=== PATIENT | male | born 1990 | race Caucasian/White ===

== ENCOUNTER 2023-01-31 12:42 | Day surgery (SDC) | payer OTHER, SELFPAY ==
--- NOTE | 2023-01-31 13:13 | HO.ANESPROP2 ---
HPI - Anesthesia Eval Consult details Narrative: 33 yo male patient for EGD PMFSH Active Problems Active Problems: Increased BMI For Right UE cubital fossa and carpal tunnel surgery in March Daily marijuana Vapes Past Medical History Medical History Adjustment disorder Anxiety and depression ETOH abuse GERD (gastroesophageal reflux disease) HTN (hypertension) PTSD (post-traumatic stress disorder) Family History Family history of problems with anesthesia: No Surgical History Surgical History (Updated 01/31/23 @ 13:26 by Geneva Love MD) H/O arthroplasty History of esophagogastroduodenoscopy (EGD) History of Problems with Anesthesia: No Social History Social History Advance Directives: No Advance Directives Information Provided: Yes Meds Allergies Allergy/AdvReac Type Severity Reaction Status Date / Time No Known Allergies Allergy Verified 01/30/23 13:35 Active Medications: Current Medications Albuterol Sulfate (Albuterol Sulfate (0.083%) 2.5 Mg/3 Ml Vial.Neb) 2.5 mg INHALE ONCE ONE Stop: 01/31/23 13:13 Lactated Ringer's (Lr) 1,000 mls @ 100 mls/hr IVCONT .Q10H [facility] Home Medications Medication Instructions Recorded Confirmed Last Taken Type No Known Home Meds 01/30/23 01/30/23 Unknown History Exam Exam Date and Time: January 31, 2023 1313 Height,Weight and Vital Signs: Height 5 ft 9 in Weight 109.769 kg Vital Signs Temp Pulse Resp BP Pulse Ox O2 Del Method 01/31/23 13:14 97.9 F 77 18 123/81 96 Room Air Airway Mallampati Class: II TM Dist: >3cm Neck ROM: Limited (S/p cervical surgery) Loose/Missing/Broken Teeth: No (Denies broken, loose, missing teeth) Heart: RRR Lungs: Wheezes Right Assessment and Plan Assessment Anesthesia Assessment: Anesthesia Plan Discussed and Chart Reviewed Final Anesthetic Review Family History of Problems with Anesthesia: No History of Problems with Anesthesia: No NPO: Yes ASA Class: III Final Preanesthetic Review: No Changes in Pt Med Stat, Meds/Allgs Chart Reviewed, Consent Obtained/Reviewed and Anes Risks/Benef Reviewed Patient Risk: Intermediate Procedure Risk: Low Assessment/Block/Sedation in SS: Assess/Block/Sedation-SS Anesthetic Plan Anesthetic Plan: MAC: Disposition: Standard PACU
[2023-01-31 13:14] VITALS: BP 123/81; PULSE 77; RESP 18; TEMP 36.6; O2SAT 96; BMI 35.7
[2023-01-31] MEDS: Albuterol Sulfate (0.083%) 2.5 MG/3 ML VIAL.NEB INHALE (13:31)
[2023-01-31 13:34] VITALS: PULSE 73; RESP 16; O2SAT 96
[2023-01-31] MEDS: Lactated Ringers 1,000 ML 100 ML IVCONT (13:39)
--- NOTE | 2023-01-31 13:59 | MHC.SHP ---
Pre-Procedural Eval Section A Date of Service: 01/31/23 The patient is an INPATIENT: No Changes since office visit: No Cold of Flu in the past 2 weeks, No New Medical Problems, No Changes in Medication and No Patient answered all questions The History & Physical has been completed within 30 days and I have reviewed it.: Yes Section B Chief Complaint: gerd Allergies: Allergies Allergy/AdvReac Type Severity Reaction Status Date / Time No Known Allergies Allergy Verified 01/30/23 13:35 Plan I have reviewed the history and physical and performed a pertinent physical examination on my patient. No changes have occurred unless specified. Time Spent With Patient Time: Total time managing care of this patient today ____ minutes.
--- NOTE | 2023-01-31 14:17 | PM.OP ---
Brief Operative Note Date of Service: 01/31/23 Pre-op diagnosis: GERD Post-op diagnosis: same Procedure: EGD Surgeon: Eliceo Dolan Anesthesia: MAC Was an [employer] used for this Procedure?: No Estimated blood loss (mL): 2 Condition: stable Disposition: PACU
[2023-01-31 14:20] VITALS: BP 121/60; PULSE 89; RESP 16; TEMP 36.4; O2SAT 95
[2023-01-31 14:35] VITALS: BP 121/72; PULSE 73; RESP 16; TEMP 36.2; O2SAT 95
--- NOTE | 2023-01-31 22:35 | OP_ITS ---
DATE OF SERVICE: 01/31/2023 SURGEON: Eliceo Dolan MD INDICATIONS: Gastroesophageal reflux disease. PREOPERATIVE DIAGNOSIS: POSTOPERATIVE DIAGNOSIS: PROCEDURE PERFORMED: Upper endoscopy with biopsy. ESTIMATED BLOOD LOSS: COMPLICATIONS: ANESTHESIA: Monitored anesthesia care. ASSISTANTS: SPECIMENS: DESCRIPTION OF PROCEDURE: A history and physical was performed. The risks and benefits of the procedure were explained to the patient. Informed consent was obtained. The patient was placed in the left lateral decubitus position. The Olympus video gastroscope was introduced into the esophagus, stomach, and duodenum. Examination was performed. The scope was removed. He tolerated the procedure well and was returned to the recovery area in stable condition. FINDINGS: Esophagus: The esophagus was normal. The EG junction was slightly irregular. This was biopsied. Stomach: The stomach showed no evidence of masses, ulcers, or polyps. The antral biopsies were obtained to evaluate for H pylori. Duodenum: The bulb and 2nd portion were normal. IMPRESSION: Gastroesophageal reflux disease. RECOMMENDATION: 1. Follow up the biopsy results. 2. Continue omeprazole. Eliceo Dolan MD BC/MODL / [id number]
== END 2023-01-31 15:18 | disposition home or self-care (01) ==
PROVIDERS: PCP Physician Assistant; Visit Provider Internal Medicine Gastroenterology
PROC: 0DJ08ZZ Inspection of Upper Intestinal Tract, Via Natural or Artificial Opening Endoscopic (ICD-10-PCS; CPT 43235; principal; 2023-01-31 13:50)
DX: K21.9 Gastro-esophageal reflux disease without esophagitis (principal); K44.9 Diaphragmatic hernia without obstruction or gangrene; I10 Essential (primary) hypertension; F41.8 Other specified anxiety disorders; F43.20 Adjustment disorder, unspecified; F43.10 Post-traumatic stress disorder, unspecified; F10.11 Alcohol abuse, in remission; F12.90 Cannabis use, unspecified, uncomplicated; Z79.899 Other long term (current) drug therapy; Z98.890 Other specified postprocedural states
CPT/HCPCS: 43239; 88305; 88342; 94640